=== PATIENT | female | born 1990 | race Caucasian/White ===

== ENCOUNTER 2020-11-20 19:56 | Emergency (ER) | payer MEDICAID ==
[~2020-11-20] VITALS: Ht 165.1 cm; Wt 68.5 kg
[2020-11-20] MEDS ORDERED: LIDOCAINE 1%, 10ML INFIL ONE (20:30)
[2020-11-20] MEDS ORDERED: LIDOCAINE-MPF 1%, 5ML ONE (20:45)
--- NOTE | 2020-11-20 21:11 | NUR ---
PT STATES "HAS HAD LEFT DISTAL PINKY FINGER PAIN AND SWELLING X1 WEEK, DOESN'T KNOW HOW STARTED THINKS MAYBE FROM BITTING ON FINGERNAIL. OZZING GREEN DISCHARGE YESTERDAY PAIN 10/10. TODAY IT IS AT A 5/10 PAIN, FEELS PRESSURE AND TINGILING LIKE PINS AND NEEDLES."
[2020-11-20 21:51] VITALS: BP 120/83
== END 2020-11-20 21:55 | disposition home or self-care (01) ==
LOC: ED 20:51
DX: L02.512 Cutaneous abscess of left hand (principal); L03.012 Cellulitis of left finger
CPT/HCPCS: 10060; 99283